=== PATIENT | female | born 1950 | race Caucasian/White ===

== ENCOUNTER 2024-05-04 09:52 | Emergency (ER) | payer MEDICARE, OTHER ==
[~2024-05-04] VITALS: Ht 154.9 cm; Wt 73.0 kg
[~2024-05-04 09:52] MED LIST: ADULT LOW DOSE81 MG PO; AMLODIPINE BESYL5 MG PO; CALCIUM 600 +1 EACH PO; FLONASE ALLERG9.9 ML NS; LIPITOR40 MG PO; MUPIROCIN15 GM TOP; NORCO 5-325 TA1 EACH PO; OCEAN45 ML NAS; OMEPRAZOLE40 MG PO; POTASSIUM99 M1 PO; TYLENOL EXTRA500 MG PO
[2024-05-04] MEDS ORDERED: HYDROCODON-ACE1 EA10 PO (10:45)
[2024-05-04 12:00] LABS: BASOPHILS 0.9 % (0-2); EOSINOPHILS 1.3 % (0-6); HEMATOCRIT 42.9 % (35.0-50.0); HEMOGLOBIN 14.5 g/dL (12.0-18.0); LYMPHOCYTES 31.8 % (24-44); MCH 32.9 (27-36); MCHC 33.9 g/dl (30-36); MCV 97.1 fl (81-99); MONOCYTES 10.7 % (0-12); NEUTROPHILS 55.3 % (39-80); PLATELET COUNT 323 K/uL (140-440); RBC 4.41 M/ul (4.3-5.7); RDW 13.3 (10.5-15.0)
[2024-05-04] MEDS ORDERED: MORPHINE SULFATE 4 MG/ML VIAL IM ONE (12:00)
[2024-05-04 12:10] LABS: INR 0.93 (0.80-1.30); PROTIME 12.4 Sec (11.2-14.2)
[2024-05-04] MEDS ORDERED: HYDROmorphone HCL 1 MG/ML SYR IM ONE (12:15)
[2024-05-04 12:16] LABS: ALBUMIN 3.9 g/dL (3.4-5.0); ALBUMIN/GLOBULIN RATIO 1.08 (1.1-2.4); ANION GAP 12.3 (7-21); BILIRUBIN, TOTAL 0.7 mg/dL (0.2-1.0); BUN/CREATININE RATIO 14.28 (6.0-28.6); CALCIUM 9.6 mg/dL (8.5-10.1); CREATININE, SERUM 1.05 mg/dL (0.55-1.02); POTASSIUM 4.3 mmol/L (3.5-5.1); PROTEIN, TOTAL 7.5 g/dL (6.4-8.2)
[2024-05-04 13:14] VITALS: BP 143/83
== END 2024-05-04 13:14 | disposition home or self-care (01) ==
LOC: ED 09:52
PROVIDERS: Emergency Medicine
DX: M54.32 Sciatica, left side (principal); I10 Essential (primary) hypertension; E78.00 Pure hypercholesterolemia, unspecified; Z87.891 Personal history of nicotine dependence; Z88.0 Allergy status to penicillin; Z88.6 Allergy status to analgesic agent; Z88.1 Allergy status to other antibiotic agents; Z88.8 Allergy status to other drugs, medicaments and biological substances; Z79.82 Long term (current) use of aspirin; Z79.899 Other long term (current) drug therapy
CPT/HCPCS: 36415; 73502; 80053; 84550; 85025; 85610; 96372; 99283; J1171